=== PATIENT | female | born 1985 | race Caucasian/White ===

== ENCOUNTER → 2018-03-16 | Outpatient (CLI) | payer OTHER ==
[~2018-03-16] MED LIST: CIPR500 PO; FLUO10 PO; FLUO20 PO; IBUP800 PO; NAPR500 PO; ONDA8ODT MM; OXYACE5T PO; PHENA200 PO; PROM25 PO; PSEU120ER PO
== END ==
LOC: LAB 16:59 → LAB SHORT 16:59
DX: L08.9 Local infection of the skin and subcutaneous tissue, unspecified (principal); L73.2 Hidradenitis suppurativa; L81.4 Other melanin hyperpigmentation; L70.8 Other acne; D22.61 Melanocytic nevi of right upper limb, including shoulder; D22.62 Melanocytic nevi of left upper limb, including shoulder
CPT/HCPCS: 87070; 87205

== ENCOUNTER 2018-07-22 06:14 | Day surgery (SDC) | payer OTHER ==
[~2018-07-22] VITALS: Ht 170.2 cm; Wt 124.1 kg
[~2018-07-22 06:14] MED LIST changes: +ACET325 PO; +ASCO500 PO; +ESCI10 PO; +ESCI20 PO; +FERSU90EL PO; +LABE100 PO; +Verotin-Gr Cap1 EACH PO; +Zantac150 MG PO
[2018-07-22] MEDS ORDERED: DIPH12.5EL PO (06:53)
[2018-07-22] MEDS ORDERED: LABE100 PO (06:53)
--- NOTE | 2018-07-22 07:05 | NUR ---
07/22/18 0705 Flori Alberto V PT RESTING IN BED, SIDE RAILSIN PLACE, CALL LIGHT WITHIN REACH, VSS. PT TEACHING COMPLETED. PT DENIES PAIN, DISCOMFORT, AND QUESTIONS AT THIS TIME.
--- NOTE | 2018-07-22 08:31 | NUR ---
07/22/18 0831 Christal Argueta PT WITH BROWN DISCOLORATION OVER THE ABDOMINAL FOLD WITH SMALL "LESION" LIKE MARKINGS THROUGHOUT THE AREA WELL AT THE PUBIC REGION, YEAST TYPE RASH UNDER BOTH BREASTS. NO OPEN,DRAINING WOUNDS PRESENT
--- NOTE | 2018-07-22 13:57 | NUR ---
07/22/18 1357 Alena Coombs AT 1018 PT WAS DC'D IN STABLE CONDITRION. NO PAIN AND NO NAUSEA. RX FOR PAIN MEDS AND NAUSEA MEDS GIVEN W/INSTRUCTIONS FOR USE. NO VAG FLOW AND DSG X2 TO ABD C/D/I. AMB TO CAR W/SBA X1 MY WELL. MY PO FLUIDS AND REFUSED SNACK PRIOR TO DC HOME
== END 2018-07-22 10:18 | disposition home or self-care (01) ==
LOC: ORSCSDS 06:14
PROVIDERS: Obstetrics & Gynecology
PROC: 0U5F4ZZ Destruction of Cul-de-sac, Percutaneous Endoscopic Approach (ICD-10-PCS; principal; 2018-07-22 07:30)
PROC: 0UT74ZZ Resection of Bilateral Fallopian Tubes, Percutaneous Endoscopic Approach (ICD-10-PCS; principal; 2018-07-22 07:30)
DX: Z30.2 Encounter for sterilization (principal); N80.3 Endometriosis of pelvic peritoneum; I10 Essential (primary) hypertension; E66.01 Morbid (severe) obesity due to excess calories; Z68.41 Body mass index [BMI] 40.0-44.9, adult; Z79.899 Other long term (current) drug therapy
CPT/HCPCS: 88302; J0690; J1100; J1885; J2405; J3010; J7120